=== PATIENT | male | born 1970 | race Two or more races ===

== ENCOUNTER 2019-09-02 06:24 | Emergency (ER) | payer OTHER ==
[~2019-09-02] VITALS: Ht 175.3 cm; Wt 104.8 kg
[2019-09-02 06:46] VITALS: Ht 175.3 cm; Wt 104.8 kg
[2019-09-02 07:50] LABS: CALCIUM 8.7 mg/dL (8.5-10.1); CARBON DIOXIDE 25.8 mmol/L (21-32); CHLORIDE SERUM 99 mmol/L (98-107); CREATININE SERUM 0.9 mg/dL (0.7-1.3); GFR1 > 60 mL/min; GLUCOSE SERUM 246 mg/dL (74-106); POTASSIUM SERUM 5.2 mmol/L (3.5-5.1); SODIUM SERUM 134 mmol/L (136-145)
[2019-09-02 07:54] LABS: ALBUMIN 3.9 g/dL (3.4-5.0); ALKALINE PHOSPHATASE 104 U/L (46-116); ALT/SGPT 77 U/L (16-63); AST/SGOT 32 U/L (15-37); BILIRUBIN TOTAL 0.6 mg/dL (0.20-1.00); LIPASE 72 IU/L (73-393); TOTAL PROTEIN, SERUM 7.4 g/dL (6.4-8.2)
[2019-09-02 08:05] LABS: BASOPHIL % 0.2 % (0-2); PLATELET COUNT 316 x10^3mcL (130-400); RED CELL DISTRIBUTION WIDTH 12.9 % (11.5-14.5)
[2019-09-02 08:36] VITALS: BP 143/98
== END 2019-09-02 08:36 | disposition home or self-care (01) ==
LOC: ED 06:24
PROVIDERS: Emergency Medicine
DX: K29.70 Gastritis, unspecified, without bleeding (principal)
CPT/HCPCS: 36415; J1885; Q0092